=== PATIENT | male | born 1950 | race Caucasian/White ===

== ENCOUNTER → 2023-08-11 | Outpatient (CLI) | payer MEDICARE ==
--- NOTE | 2023-08-11 13:47 | CA ---
Exercise Nuclear Stress Test Report Name: Sharath Carlson Exam Date: 08/11/2023 10:04 Exam Location: [place] Stress Ht (in): 74 Wt (lb): 240 BSA: 2.35 Ordering Phys: Judy Soto DO Referring Phys: JUDY SOTO,, Technologist: JANEL LEWIS Age: 73 Gender: M : 1950 Procedure CPT: Indications: I20.9 Angina ICD-10 Codes: Patient History: Medications: SEE LIST Meds past 24 hrs: Pretest Chest Pain: STRESS TEST Neel Protocol Exercise Duration (min:sec): 03:[address] Depressions (mm): Angina Score: Reinoso Score: Resting HR (bpm): 91 Peak HR (bpm): 131 Resting BP (mmHg): 139 / 83 Peak BP (mmHg): 219 / 95 MPHR: 147 Target HR: 125 % MPHR: 89 METS: 4.4 Total Dose: Peak Dose: Atropine: Double Product: 13823 BP Response: Stress Termination: Reached target heart rate Stress Symptoms: SHORTNESS OF BREATH Stress Summary: ECG ANALYSIS Resting ECG: Normal sinus rhythm, normal ECG, Stress ECG: No significant ST-T wave changes diagnostic for ischemia by ST segment analysis CONCLUSIONS Nonischemic ECG response to treadmill exercise Hypertensive response to exercise. Poor exercise tolerance lately achieving 4.4 mets Please refer to the nuclear portion of the stress test for the complete interpretation of this study Dr Gregorio Laura (Electronically Signed) Final Date: 11 August 2023 13:47
--- NOTE | 2023-08-11 13:48 | NM ---
EXAMINATION TYPE: NM stress cardiolite complete DATE OF EXAM: 08/11/2023 COMPARISON: NONE CLINICAL INDICATION: Male, 73 years old with history of I20.9 ANGINA; TECHNIQUE: After the intravenous administration of 9.86 mCi Tc 99m Sestamibi - Rest images obtained 45 minutes post injection. The patient exercised using a ROMÁN protocol and 1 minute prior to peak exercise was injected with 25.8 mCi Tc 99m Sestamibi - Stress images obtained 30 minutes post injecti on. FINDINGS: Targeted heart rate was achieved during performance of the study. Review of stress and rest SPECT farrah ges demonstrates decreased perfusion on stress images inferior wall compatible with stress-induced is chemia. Gated analysis shows normal wall motion with an estimated left ventricular ejection fraction of 65 %. IMPRESSION: S induced ischemia inferior wall.
== END | disposition home or self-care (01) ==
LOC: RADNMMAIN 08:06
PROVIDERS: ATTEND Family Medicine
DX: R03.0 Elevated blood-pressure reading, without diagnosis of hypertension (principal); I20.9 Angina pectoris, unspecified; R06.00 Dyspnea, unspecified
CPT/HCPCS: 93017; 78452; A9500

== ENCOUNTER → 2023-09-08 | Outpatient (CLI) | payer MEDICARE ==
[2023-09-08 15:50] LABS: HCT 42.5 % (39.6-50.0); HGB 14.1 g/dL (13.0-17.0); MCH 31.9 pg (27.0-32.0); MCHC 33.2 g/dL (32.0-37.0); MCV 96.2 FL (80.0-97.0); Mean Platelet Volume 10.3 FL (9.5-12.2); NRBC Per 100 WBC 0 X 10*3/uL (0.00-0.01); Platelet Count 206 X 10*3/uL (140-440); RBC 4.42 X 10*6/uL (4.40-5.60); RDW 13.7 % (11.5-14.5); WBC 5.83 X 10*3/uL (4.50-10.00)
[2023-09-08 16:07] LABS: Blood Urea Nitrogen 11.4 mg/dL (9.0-27.0); Carbon Dioxide 23.7 mmol/L (21.6-31.8); Chloride 107 mmol/L (96-109); Potassium 4.7 mmol/L (3.5-5.5); Sodium 140 mmol/L (135-145)
== END | disposition home or self-care (01) ==
LOC: LABPAT 09:16
PROVIDERS: ATTEND Internal Medicine
DX: Z01.818 Encounter for other preprocedural examination (principal); R94.39 Abnormal result of other cardiovascular function study; R06.02 Shortness of breath
CPT/HCPCS: 36415; 80051; 82565; 84520; 85027

== ENCOUNTER 2023-09-15 10:01 | Day surgery (SDC) | payer MEDICARE ==
[2023-09-14 09:39] VITALS: BMI 31.4
[~2023-09-15 10:01] MED LIST: ALPRAZolam 0.25 MG TAB PO PRN; ALPRAZolam 0.5 MG TAB PO PRN; ASPIRIN 325 MG TAB PO STA; NITROGLYCERIN SL TABS 0.4 MG TAB SUBLINGUAL PRN; SODIUM CHLORIDE 0.9% 1,000 ML in EMPTY BAG 1 BAG IV SCH
[2023-09-15] MEDS: SODIUM CHLORIDE 0.9% 1,000 ML IV ONE (10:10)
[2023-09-15 10:39] VITALS: RESP 18; TEMP 97.1
[2023-09-15] MEDS ORDERED: VERAPAMIL 2.5 MG/ML 2 ML AMP ONE (12:00)
[2023-09-15] MEDS ORDERED: LIDOCAINE 1% INJ 10MG/ML (20 ML MDV) ONE (12:00)
[2023-09-15] MEDS ORDERED: fentaNYL (PF) 50 MCG/ML 2 ML AMP ONE (12:17)
[2023-09-15] MEDS: MIDAZOLAM 2 MG/2 ML VIAL IVP ONE (12:33)
[2023-09-15] MEDS: LIDOCAINE 1% INJ 10MG/ML (20 ML MDV) SQ ONE (12:33)
[2023-09-15] MEDS: VERAPAMIL SYRINGE (5 MG/10 ML) INTRAARTER ONE (12:33)
[2023-09-15] MEDS: fentaNYL (PF) 50 MCG/ML 2 ML AMP IVP ONE (12:33)
[2023-09-15] MEDS: HEPARIN SODIUM 1,000 UN/ML (10ML VL) IVP ONE (12:35)
[2023-09-15] MEDS ORDERED: HEPARIN SODIUM 1,000 UN/ML (10ML VL) ONE (12:35)
[2023-09-15] MEDS: IOPAMIDOL-370 100ML BTL INJ ONE (12:42)
--- NOTE | 2023-09-15 13:18 | P.CARDCATH ---
Description of Procedure: PROCEDURES PERFORMED: Left heart catheterization, bilateral coronary angiography, ultrasound guided arterial access INDICATION: Abnormal stress test CONSENT:I have discussed the risks, benefits and alternative therapies for the above-mentioned procedure and for both sedation/analgesia as well as necessary blood product administration, if indicated, as they pertain to this patient. The patient has indicated understanding and acceptance of the risks and procedures discussed. PROCEDURE: After the risks, benefits and alternatives of the above mentioned procedure explained in detail with the patient, informed consent was obtained. Patient was taken to the catheterization lab and prepped and draped in usual fashion. Ultrasound guidance was used to assess for arterial access. 1% lidocaine was used to anesthetize the right radial artery. A 6-Czech sheath was placed in the right radial artery using modified Seldinger technique and ultrasound guidance. Left coronary angiography was performed with a 5-Czech JL 3.5 catheter and right coronary angiography was performed with a 5-Czech FR5 catheter in various views. A 5-Czech FR5 catheter was inserted into the left ventricle and pressure measurements were obtained. The right radial sheath was removed and a TR band was placed with hemostasis achieved. The patient to lerated the procedure well. Patient was transported back to the post catheterization holding area in stable condition. Conscious Sedation: Patient was monitored under the direct supervision of myself for conscious sedation using Versed and fentanyl for a total duration of 18 minutes HEMODYNAMICS: Aortic: 138/72 LV: 134/8, LVEDP: 17 SELECTIVE CORONARY ARTERIOGRAPHY: LEFT MAIN: The left main is a large caliber vessel which bifurcates into the LAD and circumflex. There is no significant stenosis. LEFT ANTERIOR DESCENDING CORONARY ARTERY: LAD is a large caliber vessel which wraps around to the apex. There are mild luminal irregularities of the mid LAD LEFT CIRCUMFLEX CORONARY ARTERY: Left circumflex is a moderate caliber vessel without significant stenosis. RIGHT CORONARY ARTERY: The right coronary artery is a very large caliber vessel which gives off a PDA and PLV branch and is the dominant vessel. There are mild luminal irregularities of the mid RCA. FINAL IMPRESSION: 1. Relatively normal coronary arteries other than mild luminal irregularities of the RCA and LAD 2. High normal left sided filling pressures PLAN: 1. Aggressive risk factor modification per most recent ACC/AHA guidelines. 2. Follow-up in the office in 1-2 weeks.
[2023-09-15] MEDS ORDERED: amLODIPine 5 MG TAB PO STA (14:03)
[2023-09-15] MEDS: METOPROLOL SUCCINATE (ER) 25 MG TAB.ER.24H PO STA (14:36)
[2023-09-15] MEDS: amLODIPine 2.5 MG TAB PO STA (14:37)
[2023-09-15 16:13] VITALS: BP 125/69; PULSE 71
== END 2023-09-15 16:41 | disposition home or self-care (01) ==
LOC: CATHCVL 10:01
PROVIDERS: ATTEND Internal Medicine
DX: I25.10 Atherosclerotic heart disease of native coronary artery without angina pectoris (principal); E78.2 Mixed hyperlipidemia; Z79.899 Other long term (current) drug therapy; Z82.49 Family history of ischemic heart disease and other diseases of the circulatory system
CPT/HCPCS: 93458; 76937; C1769 ×2; C1894; J2250; J2001; J3010; J1644; Q9967

== ENCOUNTER → 2023-11-20 | Outpatient (CLI) | payer MEDICARE ==
[2023-11-20 14:21] LABS: African American GFR (CKD) >90 (>60 ml/min/1.73 sqM); Blood Urea Nitrogen 12 mg/dL (9-20); Non-African American GFR(CKD) 88 (>60 ml/min/1.73 sqM)
--- NOTE | 2023-11-20 14:56 | CT ---
EXAMINATION TYPE: CT chest w con DATE OF EXAM: 11/20/2023 COMPARISON: None HISTORY: SOB X [address] DLP: 670 mGycm Automated exposure control for dose reduction was used. CONTRAST: CT scan of the chest is performed with IV Contrast, patient injected with 100 mL of Isovue 300. FINDINGS: LUNGS: Small right-sided pleural effusion with linear compressive atelectasis. Right lower lobe pulmo nary nodule measuring 5.8 mm. Right upper lobe pulmonary nodule medially image 23 measuring 5.4 mm. G roundglass nodular density right upper lobe image 34 measuring 7 mm. MEDIASTINUM: There are no greater than 1 cm hilar or mediastinal lymph nodes. No pericardial effusi on is seen. Thoracic aorta is of normal caliber. Moderate cardiomegaly seen. UPPER ABDOMEN: No significant abnormality appreciated. OTHER: No additional significant abnormality is seen. IMPRESSION: 1.Small right-sided pleural effusion with linear compressive atelectasis. 2. Scattered pulmonary nodularity is nonspecific. Follow-up in 6 months advised.
== END | disposition home or self-care (01) ==
LOC: RADCTMAIN 13:21
PROVIDERS: ATTEND Family Medicine
DX: J90 Pleural effusion, not elsewhere classified (principal); J98.11 Atelectasis; R06.09 Other forms of dyspnea; R09.02 Hypoxemia
CPT/HCPCS: 82565; 84520; 71260; 36415; Q9967

== ENCOUNTER 2024-05-30 08:05 | Day surgery (SDC) | payer MEDICARE ==
[2024-05-29 09:03] VITALS: BMI 32.1
[~2024-05-30 08:05] MED LIST changes: -ALPRAZolam 0.25 MG TAB PO PRN; -ALPRAZolam 0.5 MG TAB PO PRN; -ASPIRIN 325 MG TAB PO STA; +LIDOCAINE 1% (10MG/ML) FOR IV START INTRADERMA PRN; -NITROGLYCERIN SL TABS 0.4 MG TAB SUBLINGUAL PRN; -SODIUM CHLORIDE 0.9% 1,000 ML in EMPTY BAG 1 BAG IV SCH
[2024-05-30] MEDS: IV FLUID CONTINUATION 1,000 ML IV ONE ×2 (08:30→09:45)
[2024-05-30 08:33] VITALS: TEMP 97.3
[2024-05-30] MEDS: LACTATED RINGERS 1,000 ML IV SCH (08:37)
[2024-05-30] MEDS ORDERED: PROPOFOL 10 MG/ML 20 ML VIAL IV ONE (09:28)
--- NOTE | 2024-05-30 09:31 | P.GSHP ---
History of Present Illness H&P Date: 05/30/24 Chief Complaint: Positive Cologuard test Is a 74-year-old male (for colonoscopy. Patient has a positive Cologuard test. Past Medical History Past Medical History: GERD/Reflux, Osteoarthritis (OA) Additional Past Medical History / Comment(s): Positive Cologuard. Occassional acid reflux. Tinnitis. "Accelerated heart rate." History of Any Multi-Drug Resistant Organisms: None Reported Past Surgical History: Hernia Repair Additional Past Surgical History / Comment(s): Colonoscopy Past Anesthesia/Blood Transfusion Reactions: No Reported Reaction Additional Past Anesthesia/Blood Transfusion Reaction / Comment(s): No hx of blood transfusion to date. Smoking Status: Never smoker - Past Family History Father Family Medical History: No Reported History Medications and Allergies Home Medications Medication Instructions Recorded Confirmed Type Aspirin [Adult Low Dose Aspirin EC] 81 mg PO QAM 09/14/23 05/30/24 History Citalopram Hydrobromide [CeleXA] 20 mg PO HS 09/14/23 05/30/24 History Cyclobenzaprine [Flexeril] 10 mg PO HS 09/14/23 05/30/24 History Diclofenac Sodium [Voltaren] 75 mg PO QAM 09/14/23 05/30/24 History Ergocalciferol [Vitamin D2 (1250 1,250 mcg PO SA 09/14/23 05/30/24 History Mcg = 02919 Iu)] Famotidine 40 mg PO HS 09/14/23 05/30/24 History Metoprolol Succinate (ER) [Toprol 12.5 mg PO QAM 09/14/23 05/30/24 History Xl] Simvastatin [Zocor] 20 mg PO HS 09/14/23 05/30/24 History tadalafiL 5 mg PO QAM 09/14/23 05/30/24 History traMADol HCL 50 mg PO TID 09/14/23 05/30/24 History Centrum Silver(Unknown Dose) 1 dose PO QAM 05/29/24 05/30/24 History Cetirizine HCl [Zyrtec] 10 mg PO QAM PRN 05/29/24 05/30/24 History Co-Q10(Unknown Dose) 1 dose PO QAM 05/29/24 05/30/24 History Fish Oil(Unknown Dose) 1 dose PO QAM 05/29/24 05/30/24 History Magnesium 250 mg PO HS 05/29/24 05/30/24 History Melatonin 10 mg PO HS PRN 05/29/24 05/30/24 History Prevagen(Unknown Dose) 1 dose PO QAM 05/29/24 05/30/24 History Super B Complex(Unknown Dose) 1 dose PO QAM 05/29/24 05/30/24 History Vit E(Unknown Dose) 1 dose PO QAM 05/29/24 05/30/24 History Wheat Dextrin [Benefiber] 1 tsp PO QAM 05/29/24 05/30/24 History Allergies Allergy/AdvReac Type Severity Reaction Status Date / Time No Known Allergies Allergy Verified 05/30/24 08:25 Surgical - Exam Vital Signs Temp Pulse Resp BP Pulse Ox 97.3 F L 63 18 159/77 92 L 05/30/24 08:25 05/30/24 08:25 05/30/24 08:25 05/30/24 08:25 05/30/24 08:25 - General well developed, well nourished, no distress - Eyes PERRL - ENT normal pinna, normal nares - Neck no masses - Respiratory normal expansion - Cardiovascular Rhythm: regular - Abdomen Abdomen: soft, non tender Assessment and Plan Assessment: Positive Cologuard test. Will perform colonoscopy.
--- NOTE | 2024-05-30 09:45 | P.OP ---
Date of Procedure: 05/30/24 Preoperative Diagnosis: Positive Cologuard test Postoperative Diagnosis: Normal colon Internal hemorrhoids Procedure(s) Performed: Colonoscopy Anesthesia: MAC Surgeon: Willard Pa Pathology: none sent Condition: stable Disposition: PACU Description of Procedure: Patient is placed on the endoscopy table in the lateral position. He received IV sedation. Digital rectal exam was performed. This revealed some internal hemorrhoids. The flexible colonoscope was then placed patient anus passed throughout the entire colon. The ileocecal valve was visualized. The cecum, ascending and transverse colon appeared normal. The descending and sigmoid colon appeared normal. The rectum appeared normal. Scope withdrawn for the patient.
[2024-05-30 09:52] VITALS: RESP 16
[2024-05-30 10:01] VITALS: BP 124/74; PULSE 58
== END 2024-05-30 10:30 | disposition home or self-care (01) ==
LOC: ORWHC2ENDO 08:05
PROVIDERS: ATTEND Surgery
DX: R19.5 Other fecal abnormalities (principal); K64.8 Other hemorrhoids; K21.9 Gastro-esophageal reflux disease without esophagitis; I10 Essential (primary) hypertension; M19.90 Unspecified osteoarthritis, unspecified site; E78.5 Hyperlipidemia, unspecified; H93.19 Tinnitus, unspecified ear; Z79.899 Other long term (current) drug therapy; Z98.890 Other specified postprocedural states; Z79.82 Long term (current) use of aspirin
CPT/HCPCS: 45378; J2704